=== PATIENT | female | born 2005 | race Two or more races ===

== ENCOUNTER 2024-06-27 06:12 | Emergency (ER) | payer MEDICAID, SELFPAY ==
[2024-06-27 06:12] VITALS: BMI 38.0
[2024-06-27 06:25] VITALS: BP 115/65; PULSE 105; RESP 18; TEMP 37.3; O2SAT 98
--- NOTE | 2024-06-27 06:29 | PD.EDURI ---
Upper Respiratory Inf. RME/HPI General Chief Complaint: Flu Like Symptoms Stated Complaint: FEVER, LUNGS HURT Time Seen by Provider: 06/27/24 06:13 Source: patient Arrival date/time: 06/27/24 06:12 19-year-old female with no known medical history presents to the emergency room with a chief complaint of intermittent fevers, cough, congestion, pain when she takes deep breaths. Patient is currently 37 weeks . Patient denies any OB complaints. Mode of arrival: ambulatory Limitations: no limitations Related Data Previous Rx's ?Medication ?Instructions ?Recorded docusate sodium 100 mg capsule 100 mg PO BID #40 caps 04/16/22 hydrocodone 5 mg-acetaminophen 325 1 tab PO Q8H PRN pain (scale score 04/16/22 mg tablet 7-10) #15 tabs ibuprofen 600 mg tablet 600 mg PO Q8H PRN pain (scale 04/16/22 score 4-6) #15 tabs magnesium citrate 300 ml PO QDAY PRN constipation 04/21/22 #296 mL Allergies Allergy/AdvReac Type Severity Reaction Status Date / Time banana Allergy Swelling Verified 06/24/24 21:38 of Lip/Tongue/Throat Review of Systems Review of Systems Systems Reviewed: All systems reviewed, normal except as documented Constitutional Constitutional: Reports system reviewed and no additional complaints, except as documented, Reports body ache(s), Reports chills, Denies fatigue, Reports fever(s), Reports headache(s) and Reports weakness Eyes Eyes: Reports system reviewed and no additional complaints, except as documented, Denies blurry vision and Denies change in vision ENT Ears, Nose, Mouth, and Throat: Reports system reviewed and no additional complaints, except as documented, Denies otalgia, Reports headache(s), Reports nasal congestion, Denies throat swelling and Denies vertigo Cardiovascular Cardiovascular: Reports system reviewed and no additional complaints, except as documented, Denies chest pain, Denies dyspnea and Denies dyspnea on exertion Respiratory Respiratory: Reports system reviewed and no additional complaints, except as documented, Denies chest congestion, Denies cough, Denies dyspnea, Denies dyspnea on exertion and Denies wheezing Gastrointestinal Gastrointestinal: Reports system reviewed and no additional complaints, except as documented, Denies abdominal pain, Denies cramping, Denies nausea and Denies vomiting Genitourinary Genitourinary: Reports system reviewed and no additional complaints, except as documented Musculoskeletal Musculoskeletal: Reports system reviewed and no additional complaints, except as documented and Denies back pain Integumentary/Breasts Skin/Breast: Reports system reviewed and no additional complaints, except as documented and Denies wounds Neurologic Neurologic: Reports system reviewed and no additional complaints, except as documented, Denies confusion, Reports headache(s), Denies lack of coordination, Denies vertigo and Reports weakness Psychiatric Psychiatric: Reports system reviewed and no additional complaints, except as documented, Denies anxiety, Denies confusion, Denies depression, Denies paranoia, Denies suicidal ideation and Denies tactile hallucinations Endocrine Endocrine: Reports system reviewed and no additional complaints, except as documented and Denies fatigue Hematologic/Lymphatic Hematologic/Lymphatic: Reports system reviewed and no additional complaints, except as documented and Denies lymphadenopathy Allergic/Immunologic Allergic/Immunologic: Reports system reviewed and no additional complaints, except as documented, Denies throat swelling, Denies urticaria and Denies wheezing Past Medical History Past Medical History NEUROLOGIC: Negative Seizures CARDIAC: Negative Cardiac Disorders or Congestive Heart Failure RESPIRATORY: Positive Asthma; Negative Chronic Obstructive Pulmonary Disease (COPD) GENITOURINARY: Negative Renal Disease ENDOCRINE: Negative Diabetes Mellitus Type 1 or Diabetes Mellitus Type 2 HEMATOLOGIC: Negative Sickle Cell Disease OTHER HISTORY: Negative Blood Transfusions, Blood Transfusion Reaction or Anesthesia Reactions Social History SMOKING STATUS: Never smoker SUBSTANCE USE: marijuana ED Exam General Limitations: Present no limitations General appearance: Present alert and in no apparent distress Head Head exam: Present atraumatic Eye Eye exam: Present normal appearance, PERRL and EOMI ENT ENT exam: Present normal exam, normal oropharynx and mucous membranes moist Neck Neck exam: Present normal inspection, full ROM and trachea midline Chest Chest inspection: Present normal inspection and symmetric chest wall rise Respiratory Respiratory exam: Present normal lung sounds bilaterally; Absent respiratory distress, wheezes, stridor, accessory muscle use or prolonged expiratory phase Cardiovascular Cardiovascular exam: Present regular rate, normal rhythm and normal heart sounds Abdominal Exam Abdominal exam: Present soft and normal bowel sounds Extremities Exam Extremities exam: Present normal inspection and full ROM Back Exam Back exam: Present normal inspection and full ROM Neurological Exam Neurological exam: Present alert, oriented X3 and CN II-XII intact Psychiatric Psychiatric exam: Present normal affect and normal mood Skin Skin exam: Present warm, dry, intact and normal color Course Quality Measures none Orders Category Date Time Status Bedside COVID-19 Antigen Test NOW Care 06/27/24 06:22 Completed Bedside Influenza A&B Antigen Test NOW Care 06/27/24 06:22 Completed Acetaminophen Tab [Tylenol ES Tab] Med 06/27/24 06:28 Discontinued 1,000 mg PO X1 ONE Vital Signs Vital signs: Vital Signs Temperature 99.2 F 06/27/24 06:25 Pulse Rate 105 H 06/27/24 06:25 Respiratory Rate 18 06/27/24 06:25 Blood Pressure 115/65 06/27/24 06:25 Pulse Oximetry (%) 98 06/27/24 06:25 Oxygen Delivery Method Room Air 06/27/24 06:25 O2 saturation 98% within normal limits Upper Respiratory Infection MDM Narrative MDM Narrative:: 19-year-old female with no known medical history presents to the emergency room with a chief complaint of intermittent fevers, cough, congestion, pain when she takes deep breaths. Patient is currently 37 weeks . Patient denies any OB complaints. The patient is hemodynamically stable, nontoxic-appearing, and afebrile. Patient has clear bilateral lung sounds with no wheezing or abnormal breath sounds. Patient is currently 37 weeks and denies any pelvic pain, abdominal discomfort, or any OB complaints. Patient tested positive for influenza B. Patient was educated to continue to take Tylenol for fever management and increase her oral and fluid intake. Patient was discharged and educated to follow-up with OB and return to the emergency room for any evidence of worsening signs or symptoms Patient data External records reviewed:: [facility] previous records Clinical information provided by:: patient Social determinants that could affect healthcare access:: none Patient has the following chronic illnesses:: No chronic illness How is presenting disease/condition affected by chronic disease/condition?: no chronic disease Evaluation data The following diagnostics were reviewed and interpreted by me:: lab results and radiology exam(s) Lab and/or radiology exams considered but not ordered:: Labs and radiology exams considered and ordered Interpretation Summary: N/A Medications / Prescriptions Medications or Prescriptions considered but not ordered:: Medication given Medication administrations:: Medication Administration History Discontinued Medications Acetaminophen (Acetaminophen 500 Mg Tablet) 1,000 mg PO X1 ONE Stop: 06/27/24 06:29 Last Admin: 06/27/24 06:38 Dose: 1,000 mg Documented By: NIRANJANOR Medication given Consultations Consultation(s) initiated? (list below): No Diagnosis Upper Respiratory Differential Diagnosis: upper respiratory infection, viral infection, bronchitis, influenza and pharyngitis Most likely diagnosis given after review of the tests above:: Influenza B Admission Indicated Admission indicated?: not indicated Admission Request Was there a request for admission?: No Disposition Plan Disposition Plan: Discharge Discharge Attestation Discharge Attestation: The patient and all family members were given an opportunity to ask questions and understood the discharge instructions. Discharge instructions specifically effects, indications for sooner follow up or return to the emergency department, and the expected course of current diagnosis. Patient condition: Stable Discharge Plan Plan Patient Disposition: HOME (Self Care) Disposition Comment: Stable Prescriptions/Referrals Prescriptions/Med Rec: No Action magnesium citrate Solution 300 ml PO QDAY PRN (Reason: constipation) Qty: 296 2RF hydrocodone-acetaminophen 5-325 mg Tablet 1 tab PO Q8H MDD 3 PRN (Reason: pain (scale score 7-10)) Qty: 15 0RF docusate sodium 100 mg Capsule 100 mg PO BID Qty: 40 0RF ibuprofen 600 mg tablet 600 mg PO Q8H PRN (Reason: pain (scale score 4-6)) Qty: 15 0RF Referrals: Kyle Adame MD [Primary Care Provider] - In 1 week Problem List Clinical Impression: Influenza B Patient/Caregiver Discharge Instructions Education Materials: ED Influenza (Adult) Additional Instructions: Please follow-up with your primary care provider in the next 24 to 48 hours. You tested positive for influenza B. This virus will run its course in the next 5 to 7 days. Please continue to take Tylenol for fever management and please increase your fluid and oral. For any evidence of worsening signs or symptoms please return to the emergency room immediately Print Language: Argentine Stand Alone Forms: Suzette Award Info., Patient Portal Info Letter PA/ASSISTANT CONSTRUCTION SUPERINTENDENT Supervising Physician PA/JETHRO Supervising Physician: Dr. Chan
[2024-06-27] MEDS: ACETAMINOPHEN 500 MG TABLET 1000 MG PO (06:38)
== END 2024-06-27 06:59 | disposition home or self-care (01) ==
PROVIDERS: Emergency Provider Emergency Medicine; PCP Family Medicine
DX: J10.1 Influenza due to other identified influenza virus with other respiratory manifestations (principal)
CPT/HCPCS: 87400; 87811; 99283; A9270

== ENCOUNTER 2024-07-06 00:01 | Inpatient (IN) | payer MEDICAID, SELFPAY ==
[2024-07-06] VITALS (150 sets, daily range): BP systolic 89–160; BP diastolic 51–83; PULSE 62–115; RESP 15–100; TEMP 36.4–37.3; O2SAT 69–100; BMI 37.9
[2024-07-06 01:26] LABS: Basophils # (Auto) 0.1 Thou/mm3 (0.0-0.2); Basophils % (Auto) 0 % (0-2.5); Eosinophils % (Auto) 0 % (0-10); Hemoglobin 13.3 g/dL (12.0-16.0); Immature Granulocytes % (Auto) 1 % (0-0); Immature Granulocytes Auto 0.22 Thou/mm3 (0.00-0.00); Lymphocytes % (Auto) 10 % (10-50); Mean Corpuscular HGB Conc 35.9 g/dl (31.0-37.0); Mean Corpuscular Hemoglobin 32.5 pg (25.0-35.0); Mean Corpuscular Volume 91 fL (80-100); Monocytes % (Auto) 5 % (0-12); Neutrophils # (Auto) 16.2 Thou/mm3 (1.8-7.7); Neutrophils % (Auto) 83 % (37-80); Nucleated Red Blood Cell % 0 /100 WBC (0); Platelet Count 308 Thou/mm3 (140-440); RDW Standard Deviation 40.7 fL (36.4-46.3); Red Blood Count 4.09 Miln/mm3 (4.00-5.20); White Blood Count 19.6 Thou/mm3 (4.5-11.0)
[2024-07-06 01:30] LABS: ROM Kit Lot # 57809118; ROM Swab Mixed By: THATC; Rupture of Fetal Membranes Positive (Negative); Swb Mxed in Solvent 1 min? Yes
[2024-07-06] MEDS: fentaNYL CIT INJ 50 mCg/ML AMP 2ML 100 MCG IV (02:11)
[2024-07-06] MEDS: RINGERS LACTATED 1000 ML 1,000 ML 100 ML IV ×2 (02:11→04:36)
[2024-07-06 03:16] LABS: Syphilis Nonreactive (Nonreactive)
--- NOTE | 2024-07-06 08:28 | PD.LDHP ---
Documentation for date of: 07/06/24 OB Labor/Induct. HPI History of Present Illness Chief complaint: labor and leaking : 1 Para: 0 Term pregnancies: 0 pregnancies: 0 Living children: 0 History of Abortions: Spontaneous and Elective: 0 History of Vaginal deliveries: 0 History of sections: No History of : No Date of last menstrual period: 10/13/23 BRENDA: 07/19/24 Gestational Age (weeks): 38 Gestational Age (days): 3 Gestational age based on last menstrual period: 38 History of present illness: This is a 19-year-old 1 para 0 admit to labor and delivery with complaints of contractions since 12 PM midnight and leaking fluid since 11:00 PM. Denies social habits. Denies surgery denies chronic illness. Patient is been followed at [facility] care. First visit was 8 weeks. Last period 10/13/2023. This gave due date 07/19/2024. Patient had a 12-week ultrasound in December that confirmed dates. Patient had no problems with . She is A+, antibody screen negative, RPR nonreactive, bone, hepatitis B-, HIV negative, H hepatitis C negative, GC and Chlamydia were negative. GBS negative. She had normal 1 hour. NIPT and carrier screens negative and normal anatomy scan History of Present Dating criteria: LMP confirmed by 1st trimester US Adequate Care: Yes Ultrasounds: normal 1st trimester US and normal mid trimester US Obstetrical complications: none Medical complications: none Labs Labs: Negative: Hepatitis B, HIV, Chlamydia, Gonorrhea and Group Beta Strep Review of Systems Review of Systems Systems Reviewed: All systems reviewed, normal except as documented Past Medical History Surgical History SURGICAL: Negative Section Meds Home Medications and Allergies Home Medications ?Medication ?Instructions ?Recorded ?Confirmed ?Type vits no.130-ferrous fum 1 tab PO QDAY 07/06/24 07/06/24 History 27 mg iron-folic acid 800 mcg tablet ( Vitamin) Allergies Allergy/AdvReac Type Severity Reaction Status Date / Time banana Allergy Swelling Verified 07/06/24 01:13 of Lip/Tongue/Throat OB Exam Physical Exam Vital signs: Temp Pulse Resp BP Pulse Ox O2 Del Method 99.2 F 76 20 98/55 L 89 L Room Air 07/06/24 03:59 07/06/24 08:25 07/06/24 01:00 07/06/24 08:25 07/06/24 08:24 07/06/24 01:00 Narrative: Alert and oriented. Normal heart rate and rhythm. Lungs clear no wheezes. Gravid abdomen. Gynecoid pelvis. Estimated weight 7 and half pounds. Vaginal exam admission was 80%, 4, -2. Vertex. Contractions every 2 to 3 minutes. heart rate was category 1 with accelerations and moderate variability. 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
[2024-07-06] MEDS: MINERAL OIL 30 ML UDC TOP (09:56)
[2024-07-06] MEDS: LIDOCAINE HCL 1% 20 ML VIAL INFL (11:00)
[2024-07-06] MEDS: OXYTOCIN INJ 10 UNIT/ML VIAL IM (11:04)
[2024-07-06] MEDS: OXYTOCIN in NS 20 units 20 UNIT/1,000 ML BAG 125 UNIT IV (11:05)
[2024-07-06] MEDS: MISOPROSTOL 200 mCg TABLET 800 MCG PR (11:06)
[2024-07-06] MEDS: TRANEXAMIC ACID 1,000 MG IVPB 1,000 MG/100 ML BAG 200 MG IV (11:10)
--- NOTE | 2024-07-06 11:44 | OBDSUM_ITS ---
Data ([place]) Data Hx Section: No : 1 Para: 0 Term: 0 : 0 : 0 Delivery Data ([facility]ent[facility]) Labor Data Stimulated/Augmented: No Induction: No ROM Date: 07/05/24 ROM Time: 23:30 Rupture Type: SROM Amniotic Fluid: Clear Delivery Data EDC: 07/19/24 EDC calculated by:: LMP/early US confirmation Labor Onset Stage 1 Date: 07/06/24 Labor Onset Stage 1 Time: 01:32 Labor Onset Stage 2 Date: 07/06/24 Labor Onset Stage 2 Time: 09:51 Delivery Date: 07/06/24 Delivery Time: 10:58 Gestational age (weeks): 38 Gestational age (days): 3 Placenta Delivery Date: 07/06/24 Placenta Delivery Time: 11:05 Delivered by: Gavi Salazar Delivery nurse: Wendy Ames Delivery Method Delivery: Vaginal Delivery Type: Spontaneous Presentation: Vertex Position: OA Anesthesia Type Primary Anesthesia: Epidural Delivery Room Medications Post Delivery Medications: Tocolytics and Cytotec Placenta Placenta Delivery: Spontaneous (inspected, completes) Placenta Cultures Obtained: No Placenta Sent for Examination: No Cord Sample: Cord Blood Obtained Episiotomy Episiotomy: None Lacerations #1: Vaginal: 1st degree (and bilateral labial) Perineal repair Sutures used for repair: 3.0 Vicryl (2.0) EBL Estimated blood loss (ml): 400 Umbilical Cord Umbilical Vessels: 3 Nuchal Cord: None Body Cord: None [place] Data (Renteria) [place] Data Gender: Male Identification Band Number: [id number] Weight Grams: 3110 1 Minute Total: 8 5 Minute Total: 9
[2024-07-06] MEDS: BENZO/LANO/ALOE (Dermoplast) 60 GM CAN 1 SPRAY TOP (12:57)
[2024-07-06 16:16] LABS: Amphetamine/Metham Scrn,Ur OB Negative (Negative); Benzoylecgonine Screen, Ur OB Negative (Negative); Opiate Screen,Urine OB Negative (Negative); THC Screen,Urine OB Negative (Negative)
[2024-07-06] MEDS: IBUPROFEN TAB 400 MG TABLET 800 MG PO (16:18)
--- NOTE | 2024-07-06 18:37 | PD.NBHP ---
Maternal Data Maternal Data Mother's Name: BAY Valencia Labs: Negative: Hepatitis B, HIV, Chlamydia, Gonorrhea and Group Beta Strep Data [place] Data Gestational Age (weeks): 38 Gestational Age (days): 3 Weight (gms): 100.244 kg [place] Length (cm): 1.63 m Brief History Female born to a 20-year-old via vaginal delivery at 38/3 wga. Mom is A+,GBS negative. 9/9 [place] Exam Vital Signs-Last 24hrs Most Recent Vital Signs Temp 98.9 F 07/06/24 16:12 Pulse 76 07/06/24 16:12 Resp 18 07/06/24 16:12 BP 119/74 07/06/24 16:12 Pulse Ox 98 07/06/24 16:12 O2 Del Method Room Air 07/06/24 16:12 Diagnosis Diagnosis (1) Normal labor and delivery: Status: Acute
[2024-07-06 19:39] LABS: Basophils % (Auto) 0 % (0-2.5); Eosinophils % (Auto) 0 % (0-10); Hematocrit 32.8 % (36.0-46.0); Hemoglobin 11.5 g/dL (12.0-16.0); Immature Granulocytes % (Auto) 1 % (0-0); Immature Granulocytes Auto 0.16 Thou/mm3 (0.00-0.00); Lymphocytes # (Auto) 2.5 Thou/mm3 (1.0-4.8); Lymphocytes % (Auto) 11 % (10-50); Mean Corpuscular HGB Conc 35.1 g/dl (31.0-37.0); Mean Corpuscular Volume 91 fL (80-100); Monocytes # (Auto) 1.9 Thou/mm3 (0.0-0.8); Monocytes % (Auto) 8 % (0-12); Neutrophils # (Auto) 18.9 Thou/mm3 (1.8-7.7); Neutrophils % (Auto) 80 % (37-80); Nucleated Red Blood Cell % 0 /100 WBC (0); Platelet Count 264 Thou/mm3 (140-440); RDW Standard Deviation 41.1 fL (36.4-46.3); Red Blood Count 3.59 Miln/mm3 (4.00-5.20); White Blood Count 23.5 Thou/mm3 (4.5-11.0)
[2024-07-07] VITALS: BP 114/72; PULSE 75; RESP 18; TEMP 36.9; O2SAT 98
[2024-07-07 04:20] VITALS: BP 115/76; PULSE 68; RESP 17; TEMP 36.6; O2SAT 97
[2024-07-07] MEDS: IBUPROFEN TAB 400 MG TABLET 800 MG PO (04:30)
[2024-07-07 07:56] VITALS: BP 101/69; PULSE 60; RESP 15; TEMP 36.6; O2SAT 97
--- NOTE | 2024-07-07 09:32 | PC.SS ---
SCREEN PRINTING EQUIPMENT SETTER conducted bedside contact with the patient to address nursing referral indicating patient was positive for THC during .? Toxicology screening at admission negative.? SCREEN PRINTING EQUIPMENT SETTER introduced self and role.? Present with patient was SCHUYLER, Manjeet Herman.? Patient gave consent for FOB to be present during discussion.? SCREEN PRINTING EQUIPMENT SETTER discussed basis of referral.? Patient confirmed recreational use of THC.? Patient stated that during time of use, unaware of .? Upon confirmation of , patient ceased use.? Patient states not planning to continue recreational use of THC.? Infant, Italo; is the patient?s first child.? was delivered naturally.? Patient plans of breast feeding infant.? OB services provided by Gavi Salazar.? Patient confirms consistency with OB appointments.? Patient is aligned with SNAP and WIC.? Patient is not receiving TANF.? Patient denies history of alcohol/drug abuse.? Patient denies CWS intervention.? Patient denies episodes of domestic violence.? Patient denies possessing a history of mental health, reports no current possession of depression or anxiety.? Patient has access to appropriate supplies and equipment; to include a car seat.? FOB will provide transportation upon discharge.? Patient describes possessing support system consisting of FOB?s parents and extended family.? SCREEN PRINTING EQUIPMENT SETTER provided the patient with community resources to include Parenting Network and Warm Line.? No further intervention required at this time, community mental health social worker will be available to address any further concerns.? SCREEN PRINTING EQUIPMENT SETTER updated bedside nurse.?
--- NOTE | 2024-07-07 11:20 | PC.NURSE ---
Dheeraj from ss seen pt and clear from ss.
[2024-07-07 16:00] VITALS: BP 112/59; RESP 16; TEMP 36.7; O2SAT 98
--- NOTE | 2024-07-07 17:30 | PD.LDPPPRG ---
Subjective Subjective Interval history: Patient is a 19-year-old -0-0-1 day #1 status post vaginal delivery by Gavi Salazar. Patient is doing well she was having trouble voiding and a Mena catheter was reinserted patient is now ambulating voiding her pain is controlled with ibuprofen and Tylenol and she desires to be discharged home Exam Vital Signs Temp Pulse Resp BP Pulse Ox O2 Del Method 98.0 F 60 16 112/59 L 98 Room Air 07/07/24 16:00 07/07/24 07:56 07/07/24 16:00 07/07/24 16:00 07/07/24 16:00 07/07/24 16:00 Narrative Exam Patient is alert and oriented x 3 in no apparent distress Constitutional Constitutional: no acute distress and cooperative Routine Abdominal Exam Abdominal: Present soft Comments: Fundus firm nontender Objective Labs 07/06/24 19:22 Labs: Laboratory Results - last 24 hr 07/06/24 19:22 WBC 23.5 H RBC 3.59 L Hgb 11.5 L Hct 32.8 L MCV 91 MCH 32.0 MCHC 35.1 RDW Std Deviation 41.1 Plt Count 264 D Neut % (Auto) 80 Lymph % (Auto) 11 Garden % (Auto) 8 Eos % (Auto) 0 Baso % (Auto) 0 Neut # (Auto) 18.9 H Lymph # (Auto) 2.5 [place] # (Auto) 1.9 H Eos # (Auto) 0.0 Baso # (Auto) 0.0 Immature Gran # (Auto) 0.16 H Absolute Nucleated RBC 0.00 Immature Gran % 1 H Nucleated RBC % 0 Assessment & Plan Problem List (1) Normal labor and delivery: Status: Acute Assessment Comment Assessment comment: day #1 status post normal vaginal delivery desires discharge. Patient is breast-feeding. Plan Comment Plan Comment: Discharge home follow-up in clinic in 6 weeks. Time Spent With Patient Time: Total time spent is greater than 50% in coordination of care (as documented) at patient's floor/unit and/or counseling patient: Time with patient: less than 15 minutes
--- NOTE | 2024-07-07 17:33 | ESDS_ITS ---
DS: Providers Provider Date of admission: 07/06/24 00:41 Primary care physician: Physician No Primary/Family Admitting Provider: Gavi Salazar CNM Attending Provider on Admission: Gavi Salazar CNM Consults: 07/06/24 12:27 Referral Routine Comment: Attending Provider on DC: Teresa Ospina MD Discharging Provider: Teresa Ospina MD Anticipated date of discharge: 07/07/24 DS: Diagnosis Discharge Diagnosis (1) Normal labor and delivery: Status: Acute (2) Term of : Status: Acute Problem List Completed Was Problem List Reviewed/Reconciled?: Yes Summary/Hosp Course Brief History: This is a 19-year-old 1 para 0 admit to labor and delivery with complaints of contractions since 12 PM midnight and leaking fluid since 11:00 PM. Denies social habits. Denies surgery denies chronic illness. Patient is been followed at [facility] care. First visit was 8 weeks. Last period 10/13/2023. This gave due date 07/19/2024. Patient had a 12-week ultrasound in December that confirmed dates. Patient had no problems with . She is A+, antibody screen negative, RPR nonreactive, bone, hepatitis B-, HIV negative, H hepatitis C negative, GC and Chlamydia were negative. GBS negative. She had normal 1 hour. NIPT and carrier screens negative and normal anatomy scan Peripartum Data Delivery Method: Normal Vaginal Delivery Laceration Description: yes complications: none Status at Discharge Functional status at discharge: independent ambulation Overall status at discharge: patient is progressing back to baseline Time Spent with Patient Time attestation: Total time spent providing and/or coordinating discharge services: Time spent: Less than 30 minutes Specific discharge activities: Patient was instructed on no intercourse bathtubs or tampon use for 6 weeks. She was instructed to drink a lot of water and eat frequently in order to maintain her breastmilk she was told to call the office for any heavy bleeding fevers or signs symptoms of depression. The signs and symptoms of depression were discussed the patient and the father the baby in detail. All questions were answered prior to discharge. Exam Vital Signs Temp Pulse Resp BP Pulse Ox O2 Del Method 98.0 F 60 16 112/59 L 98 Room Air 07/07/24 16:00 07/07/24 07:56 07/07/24 16:00 07/07/24 16:00 07/07/24 16:00 07/07/24 16:00 Constitutional Constitutional: no acute distress and cooperative Routine Abdominal Exam Abdominal: Present soft Comments: Fundus firm nontender Routine Extremities Exam Comments: No significant edema Discharge Plan Plan Patient Disposition: HOME (Self Care) Patient condition on transfer: Stable Prescriptions/Referrals Prescriptions/Med Rec: No Action Vitamin 27 mg iron- 800 mcg tablet 1 tab PO QDAY ibuprofen 600 mg tablet 600 mg PO Q8H PRN (Reason: pain (scale score 4-6)) Qty: 15 0RF Referrals: No Primary/Family,Physician [Primary Care Provider] - Patient/Caregiver Discharge Instructions Discharge Activity: activity as tolerated Other Discharge Activity Instructions:: Pelvic rest x 6 weeks Other Discharge Diet Instructions: Drink lots of fluids Education Materials: After a Vaginal , Incision Care After Vaginal , Understanding Depression, : Caring for Yourself Print Language: Turkish Stand Alone Forms: Suzette Award Info., Patient Portal Info Letter Discharge Order Discharge Orders: Discharge (Routine); Ordered 07/07/24 Ordered By: Teresa Ospina Planned Discharge Date 07/07/24
== END 2024-07-07 17:52 | disposition home or self-care (01) | DRG 560 ==
LOC: S4SX 03:05 → S4NX 13:17
PROVIDERS: Admitting Provider Advanced Practice Midwife; Visit Provider Advanced Practice Midwife
DX: O70.0 First degree perineal laceration during delivery (principal); Z3A.38 38 weeks gestation of pregnancy; Z37.0 Single live birth
CPT/HCPCS: 36415; 59025; 80307; 84112; 85025; 86780; 86850; 86900; 86901; J2590; J2795; J3010; J3490; J7120; S0191; A9270